=== PATIENT | female | born 1985 | race Hispanic/Latino ===

== ENCOUNTER 2017-02-23 16:16 | Emergency (ER) | payer SELFPAY ==
[2017-02-23 17:03] VITALS: BP 108/61
[2017-02-23 18:51] LABS: Basophils % (Auto) 0.3 % (0.0-1.8); Eosinophils % (Auto) 1.3 % (0.0-4.3); Hematocrit 33.3 % (30.3-42.9); Hemoglobin 11.3 gm/dl (10.1-14.3); Mean Corpuscular HGB Conc 34 % (30-34); Mean Corpuscular Hemoglobin 29 pg (28-32); Mean Corpuscular Volume 84 fl (79-97); Platelet Count 162 K/mm3 (140-440); Red Blood Count 3.97 M/mm3 (3.65-5.03); Red Cell Distribution Width 13.9 % (13.2-15.2); White Blood Count 9.3 K/mm3 (4.5-11.0)
[2017-02-23 19:02] LABS: Alanine Aminotransferase 20 units/L (7-56); Albumin 3.6 g/dL (3.9-5); Albumin/Globulin Ratio 1.3 %; Alkaline Phosphatase 72 units/L (35-129); Anion Gap 18 mmol/L; Bilirubin,Total < 0.2 mg/dL (0.1-1.2); Blood Urea Nitrogen 11 mg/dL (7-17); Calcium 8.6 mg/dL (8.4-10.2); Carbon Dioxide 22 mmol/L (22-30); Chloride 100.8 mmol/L (98-107); Glucose 103 mg/dL (65-100); Potassium 3.9 mmol/L (3.6-5.0); Sodium 137 mmol/L (137-145); Total Protein 6.4 g/dL (6.3-8.2)
== END 2017-02-23 18:39 | disposition left against medical advice (07) ==
LOC: ED 16:16
DX: O26.891 Other specified pregnancy related conditions, first trimester (principal); R51 Headache; Z3A.14 14 weeks gestation of pregnancy; Z53.21 Procedure and treatment not carried out due to patient leaving prior to being seen by health care provider
CPT/HCPCS: 36415; 80053; 85025

== ENCOUNTER 2017-07-13 10:28 | Outpatient (CLI) | payer OTHER ==
[2017-07-13 12:43] VITALS: BP 119/73
[2017-07-13] MEDS ORDERED: LACTATED RINGERS 500 ML IV ONE (13:30)
[2017-07-13 13:34] LABS: Bacteria,Urine 1+ /HPF (Negative); Bilirubin,Urine NEG (Negative); Blood,Urine NEG (Negative); Ketones,Urine NEG (Negative); Leukocyte Esterase,Urine TR (Negative); Nitrite,Urine NEG (Negative); Protein,Urine <15 mg/dL mg/dL (Negative); Urobilinogen,Urine < 2.0 mg/dL (<2.0)
[2017-07-13] MEDS ORDERED: LACTATED RINGERS 1,000 ML IV ONE (14:29)
[2017-07-13] MEDS ORDERED: BRETHINE SUB-Q ONE (14:29)
== END 2017-07-13 16:43 | disposition home or self-care (01) ==
LOC: TRG 10:28
PROVIDERS: ATTEND Obstetrics & Gynecology
DX: O47.03 False labor before 37 completed weeks of gestation, third trimester (principal); Z87.891 Personal history of nicotine dependence; Z3A.34 34 weeks gestation of pregnancy
CPT/HCPCS: 81001; 96360; 96372; J3105; J7120

== ENCOUNTER 2017-08-14 18:25 | Outpatient (CLI) | payer OTHER ==
[2017-08-14 19:08] VITALS: BP 115/85
[2017-08-14] MEDS: LACTATED RINGERS 1,000 ML IV SCH ×2 (19:41→20:27)
[2017-08-14] MEDS ORDERED: VISTARIL PO ONE (21:00)
[2017-08-14 21:37] LABS: Bacteria,Urine 2+ /HPF (Negative); Bilirubin,Urine NEG (Negative); Blood,Urine SM (Negative); Ketones,Urine NEG (Negative); Leukocyte Esterase,Urine NEG (Negative); Mucus,Urine FEW /HPF; Nitrite,Urine NEG (Negative); Protein,Urine <15 mg/dL mg/dL (Negative); Urobilinogen,Urine < 2.0 mg/dL (<2.0)
[2017-08-14] MEDS ORDERED: MORPHINE IM ONE (21:56)
== END 2017-08-14 22:13 | disposition home or self-care (01) ==
LOC: TRG 18:25
PROVIDERS: ATTEND Obstetrics & Gynecology
DX: O47.1 False labor at or after 37 completed weeks of gestation (principal); Z87.891 Personal history of nicotine dependence; Z3A.39 39 weeks gestation of pregnancy
CPT/HCPCS: 81001; 96360; 96361; J7120; Q0177

== ENCOUNTER 2017-08-28 08:35 | Inpatient (IN) | payer OTHER ==
--- NOTE | 2017-08-28 09:20 | History and Physical Report ---
History of Present Illness Date of examination: 08/28/17 Chief complaint: labor contractions q5-6 minutes History of present illness: EDC Calculations LMP: 08/22/2017 Past History : 3 Term Births: 2 Premature Births: 0 Living Children: 2 Para: 2 Mult. Births: 0 Prev : 0 Prev. attempt? 0 Aborta: 0 Elect. Ab: 0 Spont. Ab: 0 Ectopics: 0 # 1 Delivery date: 01/17/2006 Weeks Gestation: 37 labor: no Delivery type: Hours of labor: 8 Anesthesia type: epidural Delivery location: [place] Sex: Female weight: 6-4 Name: Edy Comments: Induction for LGA # 2 Delivery date: 11/05/2012 Weeks Gestation: 39 labor: no Delivery type: Hours of labor: 20 Anesthesia type: epidural Delivery location: [facility] [place] Sex: Male weight: 7-4 Name: Sina Comments: PPH Past Medical History: Reviewed history from 05/08/2013 and no changes required: Negative Past Medical History Past Surgical History: Reviewed history from 05/08/2013 and no changes required: Negative Past Surgical History Family History Summary: Reviewed history Last on 09/15/2014 and no changes required:12/26/2016 Daughter (biol.) - Has Family History Breast Cancer - mother dx age 50, - Entered On: 10/21/2015 Daughter (biol.) - Has Family History of Ovarian Cancer - Pat Mother ovarian cancer. 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 Infection History HIV Risk Eval: no Genetic History Congenital Heart Defect: Mom: no Dad: no Mike Disease: Mom: no Dad: no Thalassemia Mom: no Dad: no Neural Tube Defect Mom: no Dad: no Down's Syndrome Mom: no Dad: no Hilton-Sachs Mom: no Dad: no Sickle Cell Disease/Trait Mom: no Dad: no Hemophilia Mom: no Dad: no Muscular Dystrophy Mom: no Dad: no Cystic Fibrosis Mom: no Dad: no [place]lin Chorea Mom: no Dad: no Mental Retardation Mom: no Dad: no Fragile X Mom: no Dad: no Other Genetic/Chromosomal Disorder Mom: no Dad: no Child w/other defect Mom: no Dad: no Enviromental Exposures Xray Exposure: no Medication, drug, or alcohol use since LMP: no Chemical/Other Exposure: no Exposure to Cat Liter: yes Hx of Parvovirus (Fifth Disease): no Active Medications (reviewed today): FLUCONAZOLE 150 MG ORAL TABS (FLUCONAZOLE) 1 tablet. repeat in 3 days if needed. Current Allergies (reviewed today): No known allergies Past History - Obstetrical History Expected Date of Delivery: 08/22/17 Actual Gestation: 40 Week(s) 6 Day(s) : 3 Para: 2 Hx # Term Pregnancies: 2 Number of Pregnancies: 0 Spontaneous Abortions: 0 Induced : 0 Number of Living Children: 2 Medications and Allergies Allergies Allergy/AdvReac Type Severity Reaction Status Date / Time No Known Allergies Allergy Verified 07/13/17 12:36 Home Medications Medication Instructions Recorded Confirmed Last Taken Type Vit-Fe Fumar-FA [ 1 tab PO QDAY 08/14/17 08/14/17 08/14/17 History Vitamin] Active Meds: Active Medications Ephedrine Sulfate (Ephedrine Sulfate) 10 mg IV Q2M PRN PRN Reason: Hypotension Stop: 08/28/17 09:15 Fentanyl (Sublimaze) 100 mcg IV Q2H PRN PRN Reason: Labor Pain Lactated Ringer's (Lactated Ringers) 1,000 mls @ 125 mls/hr IV DIRECT GRACE Oxytocin/Sodium Chloride (Pitocin/Ns 20 Unit/1000ml Drip) 20 units in 1,000 mls @ 125 mls/hr IV DIRECT GRACE Oxytocin/Sodium Chloride (Pitocin/Ns 30 Unit/500ml) 30 units in 500 mls @ 4 mls /hr IV TITR GRACE PRN Reason: Protocol Lidocaine (Xylocaine 2%) 20 ml INFILTRATI ONCE ONE Stop: 08/28/17 09:11 Mineral Oil (Mineral Oil) 30 ml PO QHS PRN PRN Reason: Constipation Terbutaline Sulfate (Brethine) 0.25 mg SUB-Q ONCE PRN PRN Reason: Hyperstimulation/Hypertonicity Stop: 08/28/17 09:11 Review of Systems All systems: negative - Vital Signs Vital signs: Vital Signs Temp Pulse Resp BP Pulse Ox 97.5 F L 103 H 16 120/74 97 08/28/17 08:55 08/28/17 08:55 08/28/17 08:55 08/28/17 08:55 08/28/17 08:55 Temp Pulse Resp BP Pulse Ox 97.5 F L 86 16 120/74 97 08/28/17 08:55 08/28/17 09:16 08/28/17 08:55 08/28/17 08:56 08/28/17 09:16 - Physical Exam Breasts: Positive: normal Cardiovascular: Regular rate Lungs: Positive: Clear to auscultation, Normal air movement Abdomen: Positive: normal appearance, soft Genitourinary (Female): Positive: normal external genitalia, normal perenium Vulva: both: normal Vagina: Positive: normal moisture Uterus: Positive: normal size, normal contour Anus/Rectum: Positive: normal perianal skin Extremities: Positive: normal Deep Tendon Reflex Grade: Normal +2 - Obstetrical FHR: auscultation normal, category 1 Uterine Contraction Monitor Mode: External Cervical Dilatation: 5.5 Cervical Effacement Percentage: 90 station: -1 Uterine Contraction Pattern: Regular Uterine Tone Measurement Phase: Contraction Uterine Contraction Intensity: Moderate Results Result Diagrams: 08/28/17 10:31 All other labs normal. Patient: LISA PETERSON ID: LAB [id number] Note: All result statuses are Final unless otherwise noted. Tests: (1) OBSTETRIC PANEL (=) WHITE BLOOD CELL COUNT 10.4 Thousand/uL 3.8-10.8 *1 RED BLOOD CELL COUNT 4.24 Million/uL 3.80-5.10 *2 HEMOGLOBIN 11.9 g/dL 11.7-15.5 *3 HEMATOCRIT 36.4 % 35.0-45.0 *4 MCV 86.0 fL 80.0-100.0 *5 MCH 28.0 pg 27.0-33.0 *6 MCHC 32.6 g/dL 32.0-36.0 *7 RDW 13.9 % 11.0-15.0 *8 PLATELET COUNT 211 Thousand/uL 140-400 *9 MPV 8.8 fL 7.5-12.5 *10 ABSOLUTE NEUTROPHILS [H] 7925 cells/uL 7371-1935 *11 ABSOLUTE LYMPHOCYTES 1810 cells/uL 850-3900 *12 ABSOLUTE MONOCYTES 562 cells/uL 200-950 *13 ABSOLUTE EOSINOPHILS 83 cells/uL 15-500 *14 ABSOLUTE BASOPHILS 31 cells/uL 0-200 *15 NEUTROPHILS 76.2 % *16 LYMPHOCYTES 17.4 % *17 MONOCYTES 5.4 % *18 EOSINOPHILS 0.8 % *19 BASOPHILS 0.3 % *20 Tests: (2) OBSTETRIC PANEL (96471OF=) ANTIBODY SCREEN, RBC W/REFL ID, TITER AND AG "Result Below..." *21 RESULT: NO ANTIBODIES DETECTED Reference range No antibodies detected This assay is a screening test for the detection of red blood cell antibodies. The test is not to be used for pretransfusion screening or for the medical management of an alloimmunized . Tests: (3) OBSTETRIC PANEL (66049QA=) ABO GROUP A *22 RH TYPE RH(D) POSITIVE *23 Tests: (4) OBSTETRIC PANEL (15454LQ=) RPR (DX) W/REFL TITER AND CONFIRMATORY TESTING NON-REACTIVE NON-REACTIVE *24 Tests: (5) OBSTETRIC PANEL (64552GA=) HEPATITIS B SURFACE ANTIGEN NON-REACTIVE NON-REACTIVE *25 Tests: (6) OBSTETRIC PANEL (15925JI=) RUBELLA ANTIBODY (IGG) 3.91 *26 Value Interpretation ----- < or = 0.90 Not consistent with Immunity 0.91-1.09 Equivocal > or = 1.10 Consistent with Immunity The presence of rubella IgG antibody suggests immunization or past or current infection with rubella virus. Tests: (7) TOXOPLASMA AB (IGG,IGM) (36SBX=) ! TOXOPLASMA ANTIBODY (IGG) < OR = 0.90 *27 Value Interpretation ----- < or = 0.90 Negative 0.91-1.09 Equivocal > or = 1.10 Positive A positive result indicates infection with Toxoplasma gondii at some time, but does not differentiate between an active or past infection. Tests: (8) TOXOPLASMA AB (IGG,IGM) (8636SBX=) ! TOXOPLASMA ANTIBODY (IGM) "Result Below..." *28 RESULT: NEGATIVE: NO IGM ANTIBODY Tests: (9) CYSTIC FIBROSIS SCREEN (57717KYRL=) ! REPORTED ETHNICITY N/P *29 ! CF RESULT see note *30 NEGATIVE; NONE OF THE MUTATIONS LISTED BELOW WERE DETECTED ! INTERPRETATION see note *31 This result does not rule out the presence of a mutation or a diagnosis of cystic fibrosis disease (CF). The risk for mutations that cause CF other than the ones tested depends greatly on family history, clinical presentation, and ethnicity. Chance of Having a CF Mutation Ethnic Group Detection Before After Negative Rate Test Result [employer]azi [employer] 94% 1 in 24 1 in 400 Non- 88% 1 in 25 1 in 208 -[place] 72% 1 in 46 1 in 164 -[place] 65% 1 in 65 1 in 186 -[place] 49% 1 in 94 1 in 184 Other insufficient data available ! MUTATIONS/POLYMORPHISMS see note *32 G85E (c.254G>A) R334W (c.1000C>T) 394delTT (c.262delTT) R347H (c.1040G>A) R117H (c.350G>A) R347P (c.1040G>C) 621+1 G>T (c.489+1G>T) A455E (c.1364C>A) 711+1 G>T (c.579+1G>T) 1507del (c.1519delATC) 1078delT (c.948delT) K404wcv (c.1521delCTT) V520F (c.1558G>T) R553X (c.1657C>T) 1717-1 G>A (c.1585-1G>A) R560T (c.1679G>C) G542X (c.1624G>T) 1898+1 G>A (c.1766+1G>A) S549N (c.1646G>A) 2183AA>G (c.1delAAinsG) S549R (c.1645A>C or c.1647T>G) 2184delA (c.2052delA) G551D (c.1652G>A) 2789+5 G>A (c.2657+5G>A) 3120+1 G>A (c.2988+1G>A) G1035P (c.3846G>A) Y8768G (c.3484C>T) R4569S (c.3909C>G) 3659delC (c.3528delC) 3849+10kb C>T (C.3717+28165K>T) 3876delA (c.3744delA) 3905insT (c.3773insT) This assay detects thirty-two mutations, including the twenty-three core mutations recommended by the [place] [employer] (ACMG) and the [place] [employer] (ACOG) for population-based CF carrier screening. In addition to the ACMG/ACOG panel, this assay detects nine additional mutations. While these mutations are rare in the [place] population, the scientific and medical literature indicates that these mutations are not benign polymorphisms. The status of the intron 9 (formerly intron 8) polyT tract is reported only when the R117H mutation is detected. ! METHOD see note *33 The mutations are detected by multiplex-polymerase chain reaction (PCR) amplification of specific CF gene regions, followed by nucleotide sequence analysis on a massively parallel sequencing platform. Although rare, false positive or false negative results may occur. All results should be interpreted in the context of clinical findings, relevant history, and other laboratory data. ! REVIEWER see note *34 Macho Mccormick, Ph.D., [facility] Director, Molecular Genetics Health care providers, please contact your local [facility] genetic counselor or call [facility] ([phone]) for assistance with interpretation of these results. The analytical performance characteristics of this assay have been determined by [facility], [place], [place]. The modifications have not been cleared or approved by the FDA. This assay has been validated pursuant to the CLIA regulations and is used for clinical purposes. For more information on this test, go to http://education.FreeLunched/faq/cfscreen Tests: (10) SICKLE CELL SCREEN W/REFL HEMOGLOBINOPATHY EVAL (53395AY=) SICKLE CELL SCREEN NEGATIVE NEGATIVE *35 Hemoglobin solubility testing alone is insufficient for detecting or confirming the presence of sickling hemoglobins in some situations. Additional testing may be required for diagnosis of hemoglobinopathies. For more information on this test go to: http://Tunes.com.FreeLunched/faq/IKK69i7 Tests: (11) HEPATITIS C AB W/REFL TO HCV RNA, QN, PCR (8472SB=) HEPATITIS C ANTIBODY NON-REACTIVE NON-REACTIVE *36 ! SIGNAL TO CUT-OFF 0.01 <1.00 *37 Tests: (12) HIV 1/2 ANTIGEN/ANTIBODY,FOURTH GENERATION W/RFL (62244HH=) ! HIV AG/AB, 4TH GEN NON-REACTIVE NON-REACTIVE *38 HIV-1 antigen and HIV-1/HIV-2 antibodies were not detected. There is no laboratory evidence of HIV infection. PLEASE NOTE: This information has been disclosed to you from records whose confidentiality may be protected by state law. If your state requires such protection, then the state law prohibits you from making any further disclosure of the information without the specific written consent of the person to whom it pertains, or as otherwise permitted by law. A general authorization for the release of medical or other information is NOT sufficient for this purpose. For additional information please refer to http://Tunes.com.FreeLunched/faq/MLC827 (This link is being provided for informational/ educational purposes only.) The performance of this assay has not been clinically validated in patients less than 2 years old. Patient: LISA PETERSON ID: LAB [id number] Note: All result statuses are Final unless otherwise noted. Tests: (1) HIV 1/2 ANTIGEN/ANTIBODY,FOURTH GENERATION W/RFL (72270PO=) ! HIV AG/AB, 4TH GEN NON-REACTIVE NON-REACTIVE *1 HIV-1 antigen and HIV-1/HIV-2 antibodies were not detected. There is no laboratory evidence of HIV infection. PLEASE NOTE: This information has been disclosed to you from records whose confidentiality may be protected by state law. If your state requires such protection, then the state law prohibits you from making any further disclosure of the information without the specific written consent of the person to whom it pertains, or as otherwise permitted by law. A general authorization for the release of medical or other information is NOT sufficient for this purpose. For additional information please refer to http://education.FreeLunched/faq/XOO150 (This link is being provided for informational/ educational purposes only.) The performance of this assay has not been clinically validated in patients less than 2 years old. Tests: (2) CHLAMYDIA/N. GONORRHOEAE RNA, TMA (96503SL=) CHLAMYDIA TRACHOMATIS RNA, TMA NOT DETECTED NOT DETECTED *2 NEISSERIA GONORRHOEAE RNA, TMA NOT DETECTED NOT DETECTED *3 ! COMMENT <No Reported Value> *4 This test was performed using the APTXceliant COMBO2 Assay ([employer] The analytical performance characteristics of this assay, when used to test SurePath specimens have been determined by [facility]. Tests: (3) RPR (DX) W/REFL TITER AND CONFIRMATORY TESTING (86034BZ=) RPR (DX) W/REFL TITER AND CONFIRMATORY TESTING NON-REACTIVE NON-REACTIVE *5 Tests: (4) STREPTOCOCCUS, GROUP B CULTURE (5617X=) STREPTOCOCCUS, GROUP B CULTURE <No Reported Value> *6 STREPTOCOCCUS, GROUP B CULTURE MICRO NUMBER: [id number] TEST STATUS: FINAL SPECIMEN SOURCE: VAG/REC SPECIMEN QUALITY: ADEQUATE RESULT: No group B Streptococcus isolated Assessment and Plan 31 y/o @ 40+6 weeks, in active labor. GBS negative. Anticipate . admission orders in EMR. - Patient Problems (1) 40 weeks gestation of Current Visit: Yes Status: Acute (2) Active labor at term Current Visit: Yes Status: Acute
[2017-08-28] MEDS ORDERED: PITOCin/NS 20 UNIT/1000ML DRIP 20 UNITS/1,000 ML BAG IV SCH ×2 (10:00→16:04)
[2017-08-28] MEDS ORDERED: LACTATED RINGERS 1,000 ML IV SCH (10:00)
[2017-08-28 10:58] LABS: Hematocrit 30.9 % (30.3-42.9); Hemoglobin 10.4 gm/dl (10.1-14.3); Mean Corpuscular HGB Conc 34 % (30-34); Mean Corpuscular Volume 75 fl (79-97); Platelet Count 154 K/mm3 (140-440); Red Blood Count 4.13 M/mm3 (3.65-5.03); Red Cell Distribution Width 15.5 % (13.2-15.2); White Blood Count 10.8 K/mm3 (4.5-11.0)
[2017-08-28] MEDS ORDERED: SUBLIMAZE IV PRN (11:00)
[2017-08-28] MEDS ORDERED: ePHEDrine SULFATE IV PRN ×2 (11:00→11:59)
[2017-08-28 11:02] LABS: Mean Corpuscular Hemoglobin 25 pg (28-32)
[2017-08-28] MEDS ORDERED: fentaNYL-BUPIV 2 MCG/ML-0.125% 200 MCG/100 ML BAG EPIDURAL ONE (11:21)
[2017-08-28] MEDS ORDERED: PITOCin/NS 30 UNIT/500ML 30 UNITS/500 ML BAG IV SCH (11:30)
[2017-08-28] MEDS ORDERED: NARCAN 2 MG/2 ML IV PRN (11:59)
[2017-08-28] MEDS ORDERED: MINERAL OIL PO PRN (12:00)
[2017-08-28] MEDS ORDERED: XYLOCAINE 2% INFILTRATI ONE (12:00)
[2017-08-28] MEDS ORDERED: BRETHINE SUB-Q PRN (12:00)
[2017-08-28] MEDS ORDERED: fentaNYL-BUPIV 2 MCG/ML-0.125% 200 MCG/100 ML BAG EPIDURAL SCH (12:00)
--- NOTE | 2017-08-28 12:00 | Anesthesia Consultation ---
Anesthesia Consult and Med Hx Date of service: 08/28/17 - Airway Anesthetic Teeth Evaluation: Good ROM Head & Neck: Adequate Mental/Hyoid Distance: Adequate Mallampati Class: Class II Intubation Access Assessment: Probably Good - Pre-Operative Health Status ASA Pre-Surgery Classification: ASA2 Proposed Anesthetic Plan: Epidural, Spinal - Pulmonary Hx Asthma: No COPD: No Hx Pneumonia: No - Cardiovascular System Hx Hypertension: No - Central Nervous System Hx Seizures: No Hx Psychiatric Problems: No - Endocrine Hx Renal Disease: No Hx End Stage Renal Disease: No Hx Hypothyroidism: No Hx Hyperthyroidism: No - Hematic Hx Anemia: Yes Hx Sickle Cell Disease: No - Other Systems Hx Alcohol Use: No
--- NOTE | 2017-08-28 12:21 | Progress Note ---
Assessment and Plan patient progressing well, comfortable s/p epidural. anticipate . - Patient Problems (1) 40 weeks gestation of Current Visit: Yes Status: Acute (2) Active labor at term Current Visit: Yes Status: Acute Subjective - Subjective Date of service: 08/28/17 Principal diagnosis: IUP @ 40+6, active labor Interval history: EDC Calculations LMP: 08/22/2017 Past History : 3 Term Births: 2 Premature Births: 0 Living Children: 2 Para: 2 Mult. Births: 0 Prev : 0 Prev. attempt? 0 Aborta: 0 Elect. Ab: 0 Spont. Ab: 0 Ectopics: 0 # 1 Delivery date: 01/17/2006 Weeks Gestation: 37 labor: no Delivery type: Hours of labor: 8 Anesthesia type: epidural Delivery location: [place] [facility] Sex: Female weight: 6-4 Name: Edy Comments: Induction for LGA # 2 Delivery date: 11/05/2012 Weeks Gestation: 39 labor: no Delivery type: Hours of labor: 20 Anesthesia type: epidural Delivery location[place] [facility] [place] Sex: Male weight: 7-4 Name: Sina Comments: PPH Past Medical History: Reviewed history from 05/08/2013 and no changes required: Negative Past Medical History Past Surgical History: Reviewed history from 05/08/2013 and no changes required: Negative Past Surgical History Family History Summary: Reviewed history Last on 09/15/2014 and no changes required:12/26/2016 Daughter (biol.) - Has Family History Breast Cancer - mother dx age 50, - Entered On: 10/21/2015 Daughter (biol.) - Has Family History of Ovarian Cancer - Pat Mother ovarian cancer. 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 Infection History HIV Risk Eval: no Genetic History Congenital Heart Defect: Mom: no Dad: no Mike Disease: Mom: no Dad: no Thalassemia Mom: no Dad: no Neural Tube Defect Mom: no Dad: no Down's Syndrome Mom: no Dad: no Hilton-Sachs Mom: no Dad: no Sickle Cell Disease/Trait Mom: no Dad: no Hemophilia Mom: no Dad: no Muscular Dystrophy Mom: no Dad: no Cystic Fibrosis Mom: no Dad: no Melvin Chorea Mom: no Dad: no Mental Retardation Mom: no Dad: no Fragile X Mom: no Dad: no Other Genetic/Chromosomal Disorder Mom: no Dad: no Child w/other defect Mom: no Dad: no Enviromental Exposures Xray Exposure: no Medication, drug, or alcohol use since LMP: no Chemical/Other Exposure: no Exposure to Cat Liter: yes Hx of Parvovirus (Fifth Disease): no Active Medications (reviewed today): FLUCONAZOLE 150 MG ORAL TABS (FLUCONAZOLE) 1 tablet. repeat in 3 days if needed. Current Allergies (reviewed today): No known allergies Patient reports: no new complaints (comfortable with epidural) Objective - Vital Signs Vital Signs: Vital Signs - 12hr 08/28/17 08/28/17 08/28/17 08:55 08:56 09:01 Temperature 97.5 F L Pulse Rate 103 H 80 85 Respiratory 16 Rate Blood Pressure 120/74 Blood Pressure 120/74 [Left] O2 Sat by Pulse 97 98 97 Oximetry 08/28/17 08/28/17 08/28/17 09:06 09:11 09:16 Temperature Pulse Rate 83 87 86 Respiratory Rate Blood Pressure Blood Pressure [Left] O2 Sat by Pulse 97 98 97 Oximetry 08/28/17 08/28/17 08/28/17 10:11 11:06 11:45 Temperature 98.3 F Pulse Rate 100 H Respiratory 18 Rate Blood Pressure Blood Pressure [Left] O2 Sat by Pulse 99 Oximetry 08/28/17 08/28/17 08/28/17 11:49 11:50 11:55 Temperature Pulse Rate 79 70 69 Respiratory Rate Blood Pressure 115/72 133/80 Blood Pressure [Left] O2 Sat by Pulse 99 99 Oximetry 08/28/17 08/28/17 08/28/17 11:56 11:58 12:00 Temperature Pulse Rate 68 86 Respiratory 18 Rate Blood Pressure 137/69 120/73 Blood Pressure [Left] O2 Sat by Pulse 98 Oximetry 08/28/17 08/28/17 08/28/17 12:01 12:04 12:05 Temperature Pulse Rate 70 80 97 H Respiratory Rate Blood Pressure 116/69 118/72 Blood Pressure [Left] O2 Sat by Pulse 100 Oximetry 08/28/17 08/28/17 08/28/17 12:07 12:09 12:10 Temperature 98.2 F Pulse Rate 96 H 96 H Respiratory Rate Blood Pressure 119/61 128/62 Blood Pressure [Left] O2 Sat by Pulse 99 Oximetry 08/28/17 08/28/17 08/28/17 12:13 12:15 12:20 Temperature Pulse Rate 100 H 107 H 77 Respiratory Rate Blood Pressure 137/69 Blood Pressure [Left] O2 Sat by Pulse 99 99 Oximetry - Exam Breasts: normal Cardiovascular: Regular rate Lungs: Clear to auscultation Abdomen: Present: normal appearance, soft Vulva: both: normal Uterus: Present: normal, firm Uterine Contraction Monitor Mode: External Cervical Dilatation: 8 (vertex, clear fluid) Cervical Effacement Percentage: 90 station: -1 Uterine Contraction Frequency (min): 2-3 Uterine Contraction Duration: 60-80 Uterine Contraction Pattern: Regular Uterine Tone Measurement Phase: Contraction Uterine Contraction Intensity: Strong/Firm Extremities: normal - Labs Labs: Abnormal Labs 08/28/17 10:31 MCV 75 L MCH 25 L RDW 15.5 H Laboratory Results - last 24 hr 08/28/17 08/28/17 10:31 10:31 WBC 10.8 RBC 4.13 Hgb 10.4 Hct 30.9 MCV 75 L MCH 25 L MCHC 34 RDW 15.5 H Plt Count 154 Blood Type A POSITIVE Antibody Screen TNR DAVID Antibody Screen Negative
--- NOTE | 2017-08-28 14:31 | Procedure Note ---
OB Delivery Note - Delivery Date of Delivery: 08/28/17 ( female) Kerrick Kleaner Operator: MACKENZIE DURHAM Estimated blood loss: 100cc - Vaginal Delivery presentation: vertex Delivery position: OA Intrapartum events: none Delivery induction: none Delivery augmentation: rupture of membranes Delivery monitor: external FHT, external uterine Route of delivery: Delivery placenta: spontaneous Delivery cord: 3 umbilical vessels Episiotomy: none Delivery laceration: none Anesthesia: epidural Delivery comments: viable baby girl born over intact perineum, placed skin to skin on mother's abd. 3 vessel cord clamped and cut after pulsation stopped. placenta del intact and complete. pit to IVF. No laceration to repair. EBL 100, apgars 8/9, weight 8 #3oz. Mother and remain LDR stable. - A at 1 minute: 8 at 5 minutes: 9 Gender: Female (8#3)
[2017-08-28] MEDS ORDERED: ZOFRAN IV PRN (16:04)
[2017-08-28] MEDS ORDERED: NORCO 5/325 PO PRN (16:04)
[2017-08-28] MEDS ORDERED: PHENERGAN PO PRN (16:04)
[2017-08-28] MEDS ORDERED: DULCOLAX PR PRN (16:04)
[2017-08-28] MEDS ORDERED: SODIUM CHLORIDE FLUSH SYRINGE 10 ML IV NR (16:04)
[2017-08-28] MEDS ORDERED: LANSINOH TP PRN (16:04)
[2017-08-28] MEDS ORDERED: TYLENOL PO PRN (16:04)
[2017-08-28] MEDS ORDERED: MILK OF MAGNESIA PO PRN (16:04)
[2017-08-28] MEDS ORDERED: TUCKS PAD TP PRN (16:04)
[2017-08-28] MEDS ORDERED: BENADRYL PO PRN (16:04)
[2017-08-28] MEDS: MOTRIN PO SCH ×2 (18:23→23:54)
[2017-08-28] MEDS: COLACE PO SCH (22:02)
[2017-08-29] MEDS: MOTRIN PO SCH ×2 (05:32→11:32)
[2017-08-29] MEDS ORDERED: BOOSTRIX IM ONE (06:00)
[2017-08-29 06:25] LABS: Hematocrit 25.2 % (30.3-42.9); Hemoglobin 8.3 gm/dl (10.1-14.3)
--- NOTE | 2017-08-29 08:12 | Progress Note ---
Assessment and Plan patient doing well, no complaints. Lochia scant, VSSAF, H&H 8.3/25.2 (anemia from blood loss, acute - asymptomatic). desires d/c home today when infant has been cleared for d/c home. Plan for routine f/u in office in 4 weeks. - Patient Problems (1) Anemia due to blood loss, acute Current Visit: Yes Status: Acute (2) (normal spontaneous vaginal delivery) Current Visit: Yes Status: Acute Subjective - Subjective Date of service: 08/29/17 Principal diagnosis: day #1 s/p Interval history: EDC Calculations LMP: 08/22/2017 Past History : 3 Term Births: 2 Premature Births: 0 Living Children: 2 Para: 2 Mult. Births: 0 Prev : 0 Prev. attempt? 0 Aborta: 0 Elect. Ab: 0 Spont. Ab: 0 Ectopics: 0 # 1 Delivery date: 01/17/2006 Weeks Gestation: 37 labor: no Delivery type: Hours of labor: 8 Anesthesia type: epidural Delivery location: [facility] Sex: Female weight: 6-4 Name: Edy Comments: Induction for LGA # 2 Delivery date: 11/05/2012 Weeks Gestation: 39 labor: no Delivery type: Hours of labor: 20 Anesthesia type: epidural Delivery [place] [facility] [place] [facility] [place] Sex: Male weight: 7-4 Name: Sina Comments: PPH Past Medical History: Reviewed history from 05/08/2013 and no changes required: Negative Past Medical History Past Surgical History: Reviewed history from 05/08/2013 and no changes required: Negative Past Surgical History Family History Summary: Reviewed history Last on 09/15/2014 and no changes required:12/26/2016 Daughter (biol.) - Has Family History Breast Cancer - mother dx age 50, - Entered On: 10/21/2015 Daughter (biol.) - Has Family History of Ovarian Cancer - Pat Mother ovarian cancer. 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 Infection History HIV Risk Eval: no Genetic History Congenital Heart Defect: Mom: no Dad: no Mike Disease: Mom: no Dad: no Thalassemia Mom: no Dad: no Neural Tube Defect Mom: no Dad: no Down's Syndrome Mom: no Dad: no Hilton-Sachs Mom: no Dad: no Sickle Cell Disease/Trait Mom: no Dad: no Hemophilia Mom: no Dad: no Muscular Dystrophy Mom: no Dad: no Cystic Fibrosis Mom: no Dad: no Lane Chorea Mom: no Dad: no Mental Retardation Mom: no Dad: no Fragile X Mom: no Dad: no Other Genetic/Chromosomal Disorder Mom: no Dad: no Child w/other defect Mom: no Dad: no Enviromental Exposures Xray Exposure: no Medication, drug, or alcohol use since LMP: no Chemical/Other Exposure: no Exposure to Cat Liter: yes Hx of Parvovirus (Fifth Disease): no Active Medications (reviewed today): FLUCONAZOLE 150 MG ORAL TABS (FLUCONAZOLE) 1 tablet. repeat in 3 days if needed. Current Allergies (reviewed today): No known allergies Patient reports: appetite normal, voiding normally, pain well controlled, ambulating normally, no dizzy ambulation, no nauseated [place]: doing well, nursing well Objective - Vital Signs Latest vital signs: Vital Signs Temp Pulse Resp BP BP BP Pulse Ox 08/29/17 00:00 98 F 85 20 96/48 96 08/28/17 21:53 98.8 F 91 H 18 106/56 97 08/28/17 15:45 97.9 F 63 18 108/53 98 08/28/17 15:16 82 150/67 08/28/17 15:01 81 151/60 08/28/17 14:30 93 H 115/55 08/28/17 14:26 106 H 123/59 08/28/17 14:15 127 H 123/59 08/28/17 13:56 96 H 100 08/28/17 13:51 64 100 08/28/17 13:46 58 L 100 08/28/17 13:45 64 123/73 08/28/17 13:41 66 100 08/28/17 13:36 82 100 08/28/17 13:31 89 140/75 100 08/28/17 13:26 75 99 08/28/17 13:21 64 99 08/28/17 13:16 70 121/67 100 08/28/17 13:10 71 100 08/28/17 13:05 87 100 08/28/17 13:02 93 H 135/87 08/28/17 13:00 101 H 100 08/28/17 12:55 81 99 08/28/17 12:50 65 99 08/28/17 12:45 77 127/66 100 08/28/17 12:40 108 H 100 08/28/17 12:35 92 H 99 08/28/17 12:32 69 134/64 08/28/17 12:30 74 98 08/28/17 12:25 71 99 08/28/17 12:20 77 99 08/28/17 12:15 107 H 99 08/28/17 12:13 100 H 137/69 08/28/17 12:10 96 H 128/62 99 08/28/17 12:09 98.2 F 08/28/17 12:07 96 H 119/61 08/28/17 12:05 97 H 100 08/28/17 12:04 80 118/72 08/28/17 12:01 70 116/69 08/28/17 12:00 86 98 08/28/17 11:58 68 120/73 08/28/17 11:56 18 137/69 08/28/17 11:55 69 133/80 99 08/28/17 11:50 70 99 08/28/17 11:49 79 115/72 08/28/17 11:45 100 H 99 08/28/17 11:06 18 08/28/17 10:11 98.3 F 08/28/17 09:16 86 97 08/28/17 09:11 87 98 08/28/17 09:06 83 97 08/28/17 09:01 85 97 08/28/17 08:56 80 120/74 98 08/28/17 08:55 97.5 F L 103 H 16 120/74 97 Intake and Output 08/28/17 08/29/17 08/29/17 23:59 07:59 15:59 Intake Total 240 Output Total 1350 Balance -1110 Intake: Oral 240 Output: Urine 1350 Void 1350 Other: Total, Intake Amount 240 Total, Output Amount 550 - Exam Breasts: Present: normal, Cardiovascular: Present: Regular rate Lungs: Present: Clear to auscultation, Normal air movement Abdomen: Present: normal appearance, soft Vulva: both: normal Uterus: Present: normal, firm, fundal height at umbilicus Extremities: Present: normal - Labs Labs: Abnormal lab results 08/28/17 08/29/17 Range/Units 10:31 05:44 Hgb 8.3 L (10.1-14.3) gm/dl Hct 25.2 L (30.3-42.9) % MCV 75 L (79-97) fl MCH 25 L (28-32) pg RDW 15.5 H (13.2-15.2) %
--- NOTE | 2017-08-29 08:24 | Discharge Summary ---
Providers - Providers Date of Admission: 08/28/17 09:48 Date of discharge: 08/29/17 (desires d/c home) Attending physician: ADRI STOVER 08/28/17 16:04 Consult to Primary Class Teacher [CONS] Routine Reason For Exam: assistance with , SNS Primary care physician: CAROL HARDY Hospitalization Reason for admission: active labor Delivery: Episiotomy: none Laceration: none Other procedures: none complications: none Discharge diagnosis: IUP at term delivered [place] baby: female Hospital course: uncomplicated vaginal Condition at discharge: Good Disposition: DC-01 TO HOME OR SELFCARE - Discharge Diagnoses (1) Anemia due to blood loss, acute Status: Acute (2) (normal spontaneous vaginal delivery) Status: Acute Plan - Discharge Medications Prescriptions: Ibuprofen [Motrin 800 MG tab] 800 mg PO Q8HR PRN #30 tablet PRN Reason: Pain - Provider Discharge Summary Activity: routine, no sex for 6 weeks, no heavy lifting 4 weeks, no strenuous exercise Diet: routine Instructions: routine Additional instructions: [] Smoking cessation referral if applicable(refer to patient education folder for contact #) [] Refer to [facility]'s [facility] Booklet Call your doctor immediately for: * Fever > 100.5 * Heavy vaginal bleeding ( >1 pad per hour) * Severe persistent headache * Shortness of breath * Reddened, hot, painful area to leg or breast * Drainage or odor from incision. * Keep incision clean and dry at all times and follow doctor's instructions regarding bathing/showering - Follow up plan Follow up: CAROL HARDY MD [Primary Care Provider] - 10/03/17 (Congratulations!! Please call [phone] to schedule your visit in 4 weeks. Call for any questions or concerns. )
[2017-08-29] MEDS ORDERED: PRENATAL VITAMIN PO SCH (10:00)
[2017-08-29] MEDS: COLACE PO SCH (11:33)
[2017-08-29] MEDS ORDERED: Fluarix Quad 2017-2018(36 MOS+) IM ONE (12:00)
--- NOTE | 2017-08-29 13:40 | Progress Note ---
Subjective Date of service: 08/29/17 Principal diagnosis: day #1 s/p Interval history: 1st day after normal vaginal delivery Patient is in the bed, comfortable. Pain is well control with pain meds. Ambulated well. No residual neurological deficit. No anesthesia complications Objective - Constitutional Vitals: Vital Signs - 12hr 08/29/17 08:18 Temperature 97.6 F Pulse Rate 68 Respiratory 18 Rate Blood Pressure 106/68 [Right] O2 Sat by Pulse 98 Oximetry - Labs CBC & Chem 7: 08/29/17 05:44 Labs: Abnormal lab results 08/29/17 Range/Units 05:44 Hgb 8.3 L (10.1-14.3) gm/dl Hct 25.2 L (30.3-42.9) %
[2017-08-29 16:43] VITALS: BP 101/64
== END 2017-08-29 17:20 | disposition home or self-care (01) | DRG 775 ==
LOC: TRG 08:35 → LD 09:48 → OB 15:39
PROVIDERS: ADMIT Obstetrics & Gynecology; ATTEND Obstetrics & Gynecology
PROC: 10E0XZZ Delivery of Products of Conception, External Approach (ICD-10-PCS; principal; 2017-08-28)
PROC: 3E0R3BZ Introduction of Anesthetic Agent into Spinal Canal, Percutaneous Approach (ICD-10-PCS; 2017-08-28)
PROC: 00HU33Z Insertion of Infusion Device into Spinal Canal, Percutaneous Approach (ICD-10-PCS; 2017-08-28)
PROC: 3E0234Z Introduction of Serum, Toxoid and Vaccine into Muscle, Percutaneous Approach (ICD-10-PCS; 2017-08-28)
DX: O99.02 Anemia complicating childbirth (principal); D62 Acute posthemorrhagic anemia; Z37.0 Single live birth; Z3A.40 40 weeks gestation of pregnancy; Z23 Encounter for immunization
CPT/HCPCS: 36415; 85014; 85018; 85027; 86592; 86850; 86900; 86901; 90472; 90686; 90715; 99211; A6250; G0463; J2590; J3010; J7120